=== PATIENT | male | born 1940 | race Caucasian/White ===

== ENCOUNTER 2024-11-07 06:34 | Emergency (ER) | payer MEDICARE ==
[~2024-11-07] VITALS: Ht 167.6 cm; Wt 108.0 kg
--- NOTE | 2024-11-07 06:54 | ERN ---
ED Note History of Present Illness Stated Complaint: C/O URINARY RETENTION X 24 HRS Chief Complaint: Urinary Retention Time Seen by MD: 06:49 Dictation: This is an 84-year-old male who presented to the emergency room complaining of urinary retention for about 24 hours. He also reports suprapubic pain and discomfort. No fever chills or rigors. Patient is a winter texin lives in [place] and drove 2 days to come back to [place]. Since his prostate surgery has not had any problems in urination. His urologist has since retired-Dr. Coleman. He taught him how to do self caths and patient stated that only in the last 1 week he has been self cathing which was going well however this morning when he attempted for the past 24 hours he could not get any urine out. He was he had severe discomfort and hence he came in for evaluation he did indicate that he had some blood in the urine when he was self cathing yesterday morning Temperature 98 pulse 61 respirations 20 blood pressure 164/65 with a pulse oximetry of 97% on room air His chronic medical problems include diabetes mellitus, hypertension and BPH he underwent a laser prostatectomy in 2012. He also gave a history of CAD and coronary artery bypass surgery in the past Allergies: Coded Allergies: No Known Drug Allergies (Verified Allergy, 12/19/12) Past Medical History Past Medical History: CAD, Diabetes-Type II, Hypertension Surgical History: Other Surgical History Other: OPEN HEART (1997) Family History: Negative RN Note Reviewed/Agreed w/PFSH: Yes Review of System Dictation Constitutional: Negative for fever,chills, and weight loss Eyes: Negative for injury, pain,redness, and discharge ENT: Negative for injury,pain or swelling Cardiovascular: Negative for chest pain, palpitations, and edema Respiratory: Negative for shortness of breath, cough, and wheezing, Abdomen/GI: Negative for abdominal pain, nausea, vomiting, diarrhea, and constipation Back: Negative for injury and pain : Negative for injury, bleeding and discharge positive for urinary retention and suprapubic pain MS/Extremity: Negative for injury and deformity Skin: Negative for rash, and discoloration Neuro: Negative for headache, weakness, numbness, tingling, and seizure Psych: Negative for suicide ideation, homicidal ideation, and hallucinations Initial Vital Sign VS Vital Signs Date Time Temp Pulse Resp B/P (MAP) Pulse Ox O2 Delivery O2 Flow Rate FiO2 11/07/24 06:36 98.1 61 20 164/65 97 Room Air 11/07/24 06:54 0 21 Physical Exam Dictation General: awake, alert, NAD Head/Face: Normocephalic, atraumatic Eyes: PERRL, EOMI, vision at baseline ENT: oral cavity clear, TMs clear, no signs of infection Neck: Trachea midline, supple, no nuchal rigidity Cardiovascular: RRR, normal S1/S2, No MRGs, no JVD Respiratory: CTAB, no respiratory distress, No rales or wheezes Abdomen: Soft, non-tender, non-distended, normal bowel sounds, no guarding or rebound. Skin: Warm, dry, normal turgor, no rash MS/Extremity: Pulses equal, no cyanosis, neurovascular intact, FROM Neuro: COAx4, GCS 15, strength 5/5, CN 2-12 intact, normal cerebellar exam, normal gait, Psych: Normal behavior, mood, and affect normal Extremities-trace edema without any palpable cords, Homans sign is negative Results (Laboratory/Radiology) Laboratory/Radiology Laboratory Tests Test 11/07/24 07:06 White Blood Count 7.3 K/uL (4.8-10.8) Red Blood Count 4.24 MIL/uL (4.50-6.20) L Hemoglobin 12.5 g/dL (14.0-18.0) L Hematocrit 37.7 % (42-54) L Mean Corpuscular Volume 88.9 fL (79-99) Mean Corpuscular Hemoglobin 29.5 pg (27.0-33.0) Mean Corpuscular Hemoglobin Concent 33.2 g/dL (32.0-36.0) Red Cell Distribution Width 12.7 % (11.0-15.5) Platelet Count 237 K/uL (130-400) Mean Platelet Volume 8.7 fL (7.5-10.5) Immature Granulocyte % (Auto) 0.5 % (0-1) Neutrophils (%) (Auto) 66.1 % (40.0-77.0) Lymphocytes (%) (Auto) 18.0 % (21.0-51.0) L Monocytes (%) (Auto) 6.9 % (3.0-13.0) Eosinophils (%) (Auto) 7.8 % (0.0-8.0) Basophils (%) (Auto) 0.7 % (0.0-5.0) Neutrophils # (Auto) 4.8 K/uL (1.8-7.7) Lymphocytes # (Auto) 1.3 K/uL (1.0-4.8) Monocytes # (Auto) 0.5 K/uL (0.1-1.0) Eosinophils # (Auto) 0.57 K/uL (0.00-0.70) Basophils # (Auto) 0.05 K/uL (0.00-0.20) Absolute Immature Granulocyte (auto 0.04 K/uL (0-1) Nucleated Red Blood Cells 0.0 % (0.0-0.19) Urine Color YELLOW (YELLOW) Urine Appearance CLOUDY (CLEAR) H Urine pH 6.5 (5.0-8.0) Urine Specific [place] 1.019 (1.001-1.031) Urine Protein 10 mg/dL (NEGATIVE) H Urine Glucose (UA) NEGATIVE mg/dL (NEGATIVE) Urine Ketones NEGATIVE mg/dL (NEGATIVE) Urine Occult Blood MODERATE (NEGATIVE) H Urine Nitrate NEGATIVE (NEGATIVE) Urine Bilirubin NEGATIVE mg/dL (NEGATIVE) Urine Urobilinogen 4.0 mg/dL (0.2-1.0) H Urine Leukocyte Esterase 75 Yves/uL (NEGATIVE) H Urine RBC TNTC /HPF (0-1) H Urine WBC 11-25 /HPF (0-1) H Urine Amorphous Crystals (Auto) Rare /LPF (None Seen) H Urine Bacteria None /HPF (None Seen) Sodium Level 139 mmol/L (136-145) Potassium Level 4.0 mmol/L (3.5-5.1) Chloride Level 106 mmol/L (101-111) Carbon Dioxide Level 26 mmol/L (21-32) Blood Urea Nitrogen 21 mg/dL (7-18) H Creatinine 1.0 mg/dL (0.5-1.3) Glomerular Filtration Rate Calc 74 mL/min (>90) Random Glucose 138 mg/dL (70-105) H Total Calcium 8.5 mg/dL (8.5-10.1) Labs Reviewed?: Yes ED Course ED Course Orders Procedure Category Date Status Time Cbc With Differential LAB 11/07/24 Complete 06:49 Basic Metabolic Panel LAB 11/07/24 Complete 06:49 Bladder Scan CPOE 11/07/24 Transmitted 06:49 Nurse Driven Pickering NASREEN 11/07/24 In Process Removal Pro 06:57 Urinalysis Profile LAB 11/07/24 Complete Catherized 06:58 Culture Urine POLLO 11/07/24 Logged 07:31 Ceftriaxone 1g Vial PHA 11/07/24 Complete (Rocephine 1g Inj) 08:00 Current Medications Medications (Trade) Dose Ordered Sig/Melissa Route PRN Reason Start Time Stop Time Status Last Admin Dose Admin Ceftriaxone Sodium (ROCEphine 1G INJ) 1 gm ONCE ONCE IVPB 11/07/24 08:00 11/07/24 08:01 DC Vital Signs Date Time Temp Pulse Resp B/P (MAP) Pulse Ox O2 Delivery O2 Flow Rate FiO2 11/07/24 07:25 98.1 56 13 153/72 96 Room Air* 0 21 11/07/24 06:54 98.1 60 17 156/74 94 Room Air* 0 21 11/07/24 06:36 98.1 61 20 164/65 97 Room Air We will perform diagnostic labs, and administer medications according to the patient's complaint. Once the results are available, will review and personally interpreted the labs to rule out any acute life-threatening emergency the trach require immediate intervention and treatment. I will then re-evaluate the patient after treatment and diagnostic exams have return to determine whether the patient requires any further testing, can safely be discharged home or need further admission to hospital for additional treatment and evaluation. Medical Decision Making MDM I took over care at 7:00 a.m.. CC: Difficulty catheterization thing, has not produced urine for about 24 hours. Limitations by social determinants of health: None Differential diagnosis: Urinary retention, infection, other Comorbidities: Diabetes, CAD, hypertension, advanced age, BPH history of laser prostatectomy in 2012. Historian: Patient Vital signs: Stable. Mild hypertension. Baseline for patient. Labs: No leukocytosis or anemia. Chemistry shows stable renal function. Stable glucose. No imaging indicated Pickering catheter placed, 1200 cc of yellow urine without blood clots removed. Patient reports improvement of symptoms. Patient has primary care follow up scheduled next week. I will recommend he follows up with the urologist, he may need a referral from his primary doctor but I will give him one here now. We will start him on tamsulosin since she is not taking it. Urinalysis did show some minimal bacteria, so we will treat with some antibiotics. He received IM Rocephin here in the ER. Otherwise, he looks well. Vitals are stable and labs are stable. Plan will be to discharge for outpatient workup. He will likely need the Pickering in place for a couple of weeks. DX & DISP Disposition: Discharge Departure Impression: Primary Impression: Urinary retention Additional Impression: UTI (urinary tract infection) Condition: Stable Scripts Cefpodoxime Proxetil (Cefpodoxime Proxetil) 200 Mg Tablet 1 TAB PO BID for 10 Days, #20 TAB 0 Refills Prov: ALLA GOFF DO 11/07/24 Tamsulosin HCl (Flomax) 0.4 Mg Cap.er.24h 0.4 MG PO DAILY for 30 Days, #30 CAPSULE. Prov: ALLA GOFF DO 11/07/24 Additional Instructions: You had urinary retention. A pickering catheter was placed and 1200mL of urine was drained. Your vital signs have been stable. Your labwork (CBC, BMP) is unremarkable. There are no signs of significant infection. The urinalysis has some mild bacteria. You will likely need to keep in the pickering catheter for 1-2 weeks. I recommend that you follow up with a urologist. As we discussed, I have given you a referral to Dr Padgett. Call for an appointment. You may need a referral from your primary doctor. I've prescribed tamsulosin. Take nightly. I've prescribed cefpodoxime, which is an antibiotic. Take as prescribed. Please return to the emergency department if you have any concerns. Referrals: ELISABETH PADGETT MD [facility],BEBETO Olvera MD Nov 07, 2024 06:54 ALLA GOFF DO Nov 07, 2024 08:18
--- NOTE | 2024-11-07 06:55 | NUR ---
BLADDER SCAN 971 ML
--- NOTE | 2024-11-07 07:13 | NUR ---
REPORT GIVEN TO BOLIVAR RN AND SAMEER RN AT THIS TIME
[2024-11-07 07:16] LABS: IMMATURE GRANULOCYTE ABSOLUTE 0.04 K/uL (0-1); NUCLEATED RED BLOOD CELLS 0.0 % (0.0-0.19); PLATELET COUNT (AUTO) 237 K/uL (130-400); RED BLOOD CELL COUNT(AUTO) 4.24 MIL/uL (4.50-6.20); RED CELL DISTRIBUTION WIDTH 12.7 % (11.0-15.5); WHITE BLOOD COUNT (AUTO) 7.3 K/uL (4.8-10.8)
[2024-11-07 07:26] LABS: CREATININE 1.0 mg/dL (0.5-1.3); GLOMERULAR FILTR. RATE CALC 74.0 mL/min (>90); GLUCOSE,RANDOM 138.0 mg/dL (70-105); SODIUM SERUM 139.0 mmol/L (136-145); UREA NITROGEN, BLOOD 21.0 mg/dL (7-18)
[2024-11-07 07:27] LABS: APPEARANCE,URINE CLOUDY (CLEAR); GLUCOSE, URINE (UA) NEGATIVE (NEGATIVE); LEUKOCYTE ESTERASE ,URINE 75 Leu/uL (NEGATIVE); NITRATE,URINE NEGATIVE (NEGATIVE); OCCULT BLOOD,URINE MODERATE (NEGATIVE)
[2024-11-07 07:31] LABS: ADD UA MICROSCOPIC YES
--- NOTE | 2024-11-07 07:35 | NUR ---
URINE OUTPUT 1200 ML
[2024-11-07] MEDS ORDERED: CEFP200T14 PO (08:14)
[2024-11-07] MEDS ORDERED: TAMS-55 PO (08:14)
--- NOTE | 2024-11-07 08:33 | NUR ---
1400 ML URINE OUTPUT
[2024-11-07 08:51] VITALS: TEMP 98.2
--- NOTE | 2024-11-07 08:52 | NUR ---
LEG BAG APPLIED AND LEG BAG INSTRUCTIONS PROVIDED TO PT, VERBALIZED UNDERSTANDING.
[2024-11-07 09:01] VITALS: BP 151/59; PULSE 64; RESP 13; O2SAT 98
== END 2024-11-07 09:02 | disposition home or self-care (01) ==
LOC: EDH 06:34
DX: N39.0 Urinary tract infection, site not specified (principal); E11.9 Type 2 diabetes mellitus without complications; I10 Essential (primary) hypertension; I25.10 Atherosclerotic heart disease of native coronary artery without angina pectoris
CPT/HCPCS: 99285; 96365; 80048; 85025; 87086; 81001; 36415; 51702; J0696

== ENCOUNTER 2024-11-14 09:10 | Emergency (ER) | payer MEDICARE ==
[~2024-11-14] VITALS: Ht 167.6 cm; Wt 108.9 kg
[~2024-11-14 09:10] MED LIST: CEFP200T14 PO; TAMS-55 PO
[2024-11-14 09:40] LABS: IMMATURE GRANULOCYTE ABSOLUTE 0.02 K/uL (0-1); NUCLEATED RED BLOOD CELLS 0.0 % (0.0-0.19); PLATELET COUNT (AUTO) 216 K/uL (130-400); RED BLOOD CELL COUNT(AUTO) 4.11 MIL/uL (4.50-6.20); RED CELL DISTRIBUTION WIDTH 12.8 % (11.0-15.5); WHITE BLOOD COUNT (AUTO) 5.8 K/uL (4.8-10.8)
[2024-11-14 09:47] LABS: CREATININE 1.0 mg/dL (0.5-1.3); GLOMERULAR FILTR. RATE CALC 74.0 mL/min (>90); GLUCOSE,RANDOM 222.0 mg/dL (70-105); SODIUM SERUM 140.0 mmol/L (136-145); UREA NITROGEN, BLOOD 20.0 mg/dL (7-18)
[2024-11-14 09:51] LABS: ASPARTATE AMINOTRANSFERASE 22.0 U/L (10-37); TOTAL PROTEIN, SERUM 6.2 g/dL (6.0-8.3)
[2024-11-14 14:10] LABS: GLUCOSE, URINE (UA) NEGATIVE (NEGATIVE); LEUKOCYTE ESTERASE ,URINE MODERATE Leu/uL (NEGATIVE); NITRATE,URINE POSITIVE (NEGATIVE); OCCULT BLOOD,URINE LARGE (NEGATIVE)
[2024-11-14 14:11] LABS: ADD UA MICROSCOPIC YES; APPEARANCE,URINE TURBID (CLEAR)
[2024-11-14 14:24] LABS: SQUAMOUS EPITHELIAL CELL,UR None Seen /HPF (0-2)
--- NOTE | 2024-11-14 15:12 | ERN ---
ED Note History of Present Illness Stated Complaint: BLOOD IN URINE Chief Complaint: Blood in Urine: Time Seen by MD: 09:18 Dictation: 84-year-old male presenting to the emergency department with blood in Cortes catheter patient reports having Cortes catheter in place a few days ago doing well until today having discomfort and trouble urinating. Allergies: Coded Allergies: No Known Drug Allergies (Verified Allergy, 12/19/12) Home Meds Active Scripts Cefpodoxime Proxetil (Cefpodoxime Proxetil) 200 Mg Tablet, 1 TAB PO BID for 10 Days, #20 TAB 0 Refills Prov:ALLA GOFF DO 11/07/24 Tamsulosin HCl (Flomax) 0.4 Mg Cap.er.24h, 0.4 MG PO DAILY for 30 Days, #30 CAPSULE.DR Prov:ALLA GOFF DO 11/07/24 Past Medical History Past Medical History: CAD, Diabetes-Type II, Hypertension Surgical History: Other Surgical History Other: OPEN HEART (1997) Family History: Negative Review of System Dictation Constitutional: Negative for fever,chills, and weight loss Eyes: Negative for injury, pain,redness, and discharge ENT: Negative for injury,pain or swelling Cardiovascular: Negative for chest pain, palpitations, and edema Respiratory: Negative for shortness of breath, cough, and wheezing, Abdomen/GI: Negative for abdominal pain, nausea, vomiting, diarrhea, and constipation Back: Negative for injury and pain : Per HPI MS/Extremity: Negative for injury and deformity Skin: Negative for rash, and discoloration Neuro: Negative for headache, weakness, numbness, tingling, and seizure Psych: Negative for suicide ideation, homicidal ideation, and hallucinations Initial Vital Sign VS Vital Signs Date Time Temp Pulse Resp B/P (MAP) Pulse Ox O2 Delivery O2 Flow Rate FiO2 11/14/24 09:11 97.3 73 20 156/56 97 Room Air 11/14/24 11:28 0 21 Physical Exam Dictation General: awake, alert, NAD Head/Face: Normocephalic, atraumatic Eyes: PERRL, EOMI, vision at baseline ENT: oral cavity clear, TMs clear, no signs of infection Neck: Trachea midline, supple, no nuchal rigidity Cardiovascular: RRR, normal S1/S2, No MRGs, no JVD Respiratory: CTAB, no respiratory distress, No rales or wheezes Abdomen: Soft, non-tender, non-distended, normal bowel sounds, no guarding or rebound. Cortes catheter in place with bloody urine Skin: Warm, dry, normal turgor, no rash MS/Extremity: Pulses equal, no cyanosis, neurovascular intact, FROM Neuro: COAx4, GCS 15, strength 5/5, CN 2-12 intact, normal cerebellar exam, normal gait, Results (Laboratory/Radiology) Laboratory/Radiology Laboratory Tests Test 11/14/24 09:31 11/14/24 13:45 White Blood Count 5.8 K/uL (4.8-10.8) Red Blood Count 4.11 MIL/uL (4.50-6.20) L Hemoglobin 12.2 g/dL (14.0-18.0) L Hematocrit 37.6 % (42-54) L Mean Corpuscular Volume 91.5 fL (79-99) Mean Corpuscular Hemoglobin 29.7 pg (27.0-33.0) Mean Corpuscular Hemoglobin Concent 32.4 g/dL (32.0-36.0) Red Cell Distribution Width 12.8 % (11.0-15.5) Platelet Count 216 K/uL (130-400) Mean Platelet Volume 8.6 fL (7.5-10.5) Immature Granulocyte % (Auto) 0.3 % (0-1) Neutrophils (%) (Auto) 67.0 % (40.0-77.0) Lymphocytes (%) (Auto) 19.3 % (21.0-51.0) L Monocytes (%) (Auto) 6.2 % (3.0-13.0) Eosinophils (%) (Auto) 6.7 % (0.0-8.0) Basophils (%) (Auto) 0.5 % (0.0-5.0) Neutrophils # (Auto) 3.9 K/uL (1.8-7.7) Lymphocytes # (Auto) 1.1 K/uL (1.0-4.8) Monocytes # (Auto) 0.4 K/uL (0.1-1.0) Eosinophils # (Auto) 0.39 K/uL (0.00-0.70) Basophils # (Auto) 0.03 K/uL (0.00-0.20) Absolute Immature Granulocyte (auto 0.02 K/uL (0-1) Nucleated Red Blood Cells 0.0 % (0.0-0.19) Sodium Level 140 mmol/L (136-145) Potassium Level 4.5 mmol/L (3.5-5.1) Chloride Level 104 mmol/L (101-111) Carbon Dioxide Level 27 mmol/L (21-32) Blood Urea Nitrogen 20 mg/dL (7-18) H Creatinine 1.0 mg/dL (0.5-1.3) Glomerular Filtration Rate Calc 74 mL/min (>90) Random Glucose 222 mg/dL (70-105) H Total Calcium 8.6 mg/dL (8.5-10.1) Total Bilirubin 0.6 mg/dL (0.2-1.0) Direct Bilirubin 0.2 mg/dL (0.0-0.3) Aspartate Amino Transf (AST/SGOT) 22 U/L (10-37) Alanine Aminotransferase (ALT/SGPT) 42 U/L (12-78) Alkaline Phosphatase 131 U/L (50-136) Total Protein 6.2 g/dL (6.0-8.3) Albumin 2.9 g/dL (3.5-5.0) L Urine Color RED (YELLOW) H Urine Appearance TURBID (CLEAR) H Urine pH 6.5 (5.0-8.0) Urine Specific [place] 1.015 (1.001-1.031) Urine Protein >=300 mg/dL (NEGATIVE) H Urine Glucose (UA) NEGATIVE mg/dL (NEGATIVE) Urine Ketones 5 mg/dL (NEGATIVE) H Urine Occult Blood LARGE (NEGATIVE) H Urine Nitrate POSITIVE (NEGATIVE) H Urine Bilirubin LARGE mg/dL (NEGATIVE) H Urine Urobilinogen 2.0 mg/dL (0.2-1.0) H Urine Leukocyte Esterase MODERATE Yves/uL Urine RBC TNTC /HPF (0-1) H Urine WBC 26-50 /HPF (0-1) H Urine Squamous Epithelial Cells None Seen /HPF (0-2) Urine Bacteria Rare /HPF (None Seen) Labs Reviewed?: Yes ED Course ED Course Orders Procedure Category Date Status Time Basic Metabolic Panel LAB 11/14/24 Complete 09: Cbc With Differential LAB 11/14/24 Complete 09:20 Hepatic Function Panel LAB 11/14/24 Complete 09:20 Urinalysis Profile LAB 11/14/24 Complete 09:20 *Nursing CPOE 11/14/24 Transmitted Communication: 12:14 Culture Urine POLLO 11/14/24 In Process 14:13 Vital Signs Date Time Temp Pulse Resp B/P (MAP) Pulse Ox O2 Delivery O2 Flow Rate FiO2 11/14/24 11:28 97.3 71 20 141/60 97 Room Air* 0 21 11/14/24 09:11 97.3 73 20 156/56 97 Room Air Medical Decision Making MDM MDM: Differential diagnosis: Rationale: Tests considered and ordered secondary to shared decision making include: Previous outside records reviewed: Old ER visits. Risk of complication and/or morbidity or mortality of patient management: None Medications-Per medication reconciliation Need for hospitalization: Patient does not meet criteria for hospitalization. Need for emergency major/minor surgery: No There are no social concerns with this patient. Prescription drug management Prescriptions will include symptomatic care Patient's prior external medical records from other ER visits were reviewed by me as indicated. Prior testing and results from previous visits were reviewed. Prior tests were taken into account with medical decision making and resource utilization, independent historian/historians were used to obtain complete medical history. I independently interpreted the test that were performed, results were reviewed by me and considered findings on radiology if ordered. Medical management and examination interpretation discussions were had by me with other qualified healthcare professionals as indicated for the patient's care. 84-year-old male with gross hematuria from Cortes, Cortes was replaced with three way irrigated and urine has not now cleared no obstruction stable for discharge DX & DISP Disposition: Discharge Departure Impression: Primary Impression: Hematuria Additional Impression: Cortes catheter in place Condition: Stable Referrals: CAROLYN BROWN MD (PCP) JAMIE GREGG MD Nov 14, 2024 15:12
[2024-11-14 16:30] VITALS: BP 138/62; PULSE 70; RESP 20; TEMP 97.3; O2SAT 97
[2024-11-16] MEDS ORDERED: ATOR-2 PO (20:22)
[2024-11-16] MEDS ORDERED: ATEN50TA PO (20:24)
[2024-11-16] MEDS ORDERED: TAMS-55 PO (20:24)
[2024-11-16] MEDS ORDERED: METF-444 PO (20:24)
[2024-11-16] MEDS ORDERED: CLOP75TA32 PO (20:27)
[2024-11-16] MEDS ORDERED: LISI10TA24 PO (20:27)
[2024-11-16] MEDS ORDERED: EZET10TA80 PO (20:27)
[2024-11-16] MEDS ORDERED: [UNRECOGNIZED DRUG - CODE] PO (20:34)
[2024-11-16] MEDS ORDERED: FOLI0.8C PO (20:34)
[2024-11-16] MEDS ORDERED: ASPI-1146 PO (20:37)
[2024-11-16] MEDS ORDERED: CETI10TA87 PO (20:37)
[2024-11-16] MEDS ORDERED: NIAC500C9 PO (20:37)
[2024-11-16] MEDS ORDERED: ASPI-1197 PO (20:37)
[2024-11-16] MEDS ORDERED: areds2 (20:39)
[2024-11-16] MEDS ORDERED: AREDS-2 PO (20:39)
[2024-11-16] MEDS ORDERED: TUMERIC CURCUMIN PO (20:40)
[2024-11-16] MEDS ORDERED: ALBUTEROL IH (20:42)
== END 2024-11-14 16:33 | disposition home or self-care (01) ==
LOC: EDH 09:10
DX: R31.9 Hematuria, unspecified (principal); E11.9 Type 2 diabetes mellitus without complications; I10 Essential (primary) hypertension; I25.10 Atherosclerotic heart disease of native coronary artery without angina pectoris; Z96.0 Presence of urogenital implants
CPT/HCPCS: 36415; 51702; 80048; 80076; 81001; 85025; 87086; 99283; 99284

== ENCOUNTER 2024-12-26 08:48 | Emergency (ER) | payer MEDICARE ==
[~2024-12-26] VITALS: Ht 167.6 cm; Wt 104.3 kg
[~2024-12-26 08:48] MED LIST changes: +ALBUTEROL IH; +AREDS-2 PO; +ASPI-1146 PO; +ATEN50TA PO; +ATOR-2 PO; +CETI10TA87 PO; +CLOP75TA32 PO; +EZET10TA80 PO; +FLUT15.845 NS; +FOLI0.8C PO; +LISI10TA24 PO; +METF-444 PO; +NIAC500C9 PO; +TUMERIC CURCUMIN PO; +[UNRECOGNIZED DRUG - CODE] PO
[2024-12-26 08:55] VITALS: BP 151/61; PULSE 65; RESP 16; TEMP 97.5
--- NOTE | 2024-12-26 11:32 | NUR ---
PT JUST NOW PLACED IN ED 1
[2024-12-26 12:14] LABS: APPEARANCE,URINE TURBID (CLEAR); GLUCOSE, URINE (UA) NEGATIVE (NEGATIVE); LEUKOCYTE ESTERASE ,URINE 500 Leu/uL (NEGATIVE); NITRATE,URINE NEGATIVE (NEGATIVE); OCCULT BLOOD,URINE LARGE (NEGATIVE)
[2024-12-26 12:16] LABS: ADD UA MICROSCOPIC YES
[2024-12-26 12:45] LABS: SQUAMOUS EPITHELIAL CELL,UR None Seen /HPF (0-2)
[2024-12-26] MEDS ORDERED: CIPR-278 PO (13:34)
--- NOTE | 2024-12-26 13:34 | ERN ---
ED Note History of Present Illness Stated Complaint: URINARY RETENTION Chief Complaint: Urinary Retention Time Seen by MD: 08:50 Dictation: 84-year-old male presenting to the emergency department with acute urinary retention, patient had Cortes which was DC by his urologist yesterday in clinic however urinary retention returned and arrived to the emergency department today. Patient denies any fever chest pain or shortness of breath or abdominal pain. Allergies: Coded Allergies: No Known Drug Allergies (Verified Allergy, 12/19/12) Home Meds Reported Medications Cefpodoxime Proxetil (Cefpodoxime Proxetil) 200 Mg Tablet, 1 TAB PO BID 11/30/24 Fluticasone Propionate (Fluticasone Propionate) 50 Mcg/Actuation Tarkio.susp, 2 SPRAY NS BID, #16 GM 0 Refills 11/30/24 Aspirin (Ecotrin) 325 Mg Tablet.dr, 325 MG PO DAILY, TAB 11/30/24 Tamsulosin HCl (Flomax) 0.4 Mg Cap.er.24h, 1 CAP PO BID 11/30/24 Clopidogrel Bisulfate (Clopidogrel) 75 Mg Tablet, 1 TAB PO DAILY 11/30/24 [Salabutamol] No Conflict Check, 1 PUFF IH AD PRN for SHORTNESS OF BREATH/WHEEZING 11/16/24 [Tumeric Curcumin] No Conflict Check, 500 MG PO DAILY 11/16/24 [Areds-2] No Conflict Check, 1 TAB PO BID PRN for EYE VITAMIN 11/16/24 Cetirizine HCl (Cetirizine HCl) 10 Mg Tab.chew, 1 TAB PO HS for allergy symptoms for 30 Days, #30 TAB 0 Refills 11/16/24 Niacin (Niacin) 500 Mg Capsule.er, 500 MG PO AM, CAP 11/16/24 Folic Acid (Folic Acid) 0.8 Mg Capsule, 0.8 MG PO DAILY, CAP 11/16/24 Pyridoxine HCl (Vitamin B-6) 100 Mg Tablet, 100 MG PO DAILY, TAB 11/16/24 Ezetimibe (Ezetimibe) 10 Mg Tablet, 1 TAB PO DAILY for 30 Days, #30 TAB 0 Refills 11/16/24 Lisinopril (Lisinopril) 10 Mg Tablet, 1 TAB PO DAILY for 30 Days, #30 TAB 0 Refills 11/16/24 Metformin HCl (Metformin HCl) 500 Mg Tablet, 500 MG PO DAILY, TAB 11/16/24 Atenolol (Atenolol) 50 Mg Tablet, 1 TAB PO PCDINNER for 30 Days, #30 TAB 0 Refills 11/16/24 Atorvastatin Calcium (Atorvastatin Calcium) 80 Mg Tablet, 80 MG PO HS, TAB 11/16/24 Past Medical History Past Medical History: High Cholesterol, Hypertension, Other Additional Past Medical Hx: HARD OF HEARING Surgical History: Other Surgical History Other: BLADDER SX WITH DR. AMADO. BILATERAL LOWER EXTREMITY VEINS SX Family History: Negative Review of System Dictation Constitutional: Negative for fever,chills, and weight loss Eyes: Negative for injury, pain,redness, and discharge ENT: Negative for injury,pain or swelling Cardiovascular: Negative for chest pain, palpitations, and edema Respiratory: Negative for shortness of breath, cough, and wheezing, Abdomen/GI: Negative for abdominal pain, nausea, vomiting, diarrhea, and constipation Back: Negative for injury and pain : Per HPI MS/Extremity: Negative for injury and deformity Skin: Negative for rash, and discoloration Neuro: Negative for headache, weakness, numbness, tingling, and seizure Psych: Negative for suicide ideation, homicidal ideation, and hallucinations Initial Vital Sign VS Vital Signs Date Time Temp Pulse Resp B/P (MAP) Pulse Ox O2 Delivery O2 Flow Rate FiO2 12/26/24 08:55 97.5 65 16 151/61 97 Room Air 0 Physical Exam Dictation General: awake, alert, uncomfortable Head/Face: Normocephalic, atraumatic Eyes: PERRL, EOMI, vision at baseline ENT: oral cavity clear, TMs clear, no signs of infection Neck: Trachea midline, supple, no nuchal rigidity Cardiovascular: RRR, normal S1/S2, No MRGs, no JVD Respiratory: CTAB, no respiratory distress, No rales or wheezes Abdomen: Soft, non-tender, non-distended, normal bowel sounds, no guarding or rebound. Skin: Warm, dry, normal turgor, no rash MS/Extremity: Pulses equal, no cyanosis, neurovascular intact, FROM Neuro: COAx4, GCS 15, strength 5/5, CN 2-12 intact, normal cerebellar exam, normal gait, Psych: Normal behavior, mood, and affect normal Results (Laboratory/Radiology) Laboratory/Radiology Laboratory Tests Test 12/26/24 12:01 Urine Color YELLOW (YELLOW) Urine Appearance TURBID (CLEAR) Urine pH 6.5 (5.0-8.0) Urine Specific [place] 1.014 (1.001-1.031) Urine Protein 50 mg/dL (NEGATIVE) H Urine Glucose (UA) NEGATIVE mg/dL (NEGATIVE) Urine Ketones NEGATIVE mg/dL (NEGATIVE) Urine Occult Blood LARGE (NEGATIVE) H Urine Nitrate NEGATIVE (NEGATIVE) Urine Bilirubin NEGATIVE mg/dL (NEGATIVE) Urine Urobilinogen 0.2 mg/dL (0.2-1.0) Urine Leukocyte Esterase 500 Yves/uL (NEGATIVE) H Urine RBC 11-25 /HPF (0-1) H Urine WBC 26-50 /HPF (0-1) H Urine Squamous Epithelial Cells None Seen /HPF (0-2) Urine Bacteria Moderate /HPF (None Seen) H Labs Reviewed?: Yes ED Course ED Course Orders Procedure Category Date Status Time *Nursing CPOE 12/26/24 Transmitted Communication: 08:50 Urinalysis Profile LAB 12/26/24 Complete 08:50 Culture Urine POLLO 12/26/24 In Process 12:17 Ceftriaxone 2gm Vial PHA 12/26/24 Complete (Rocephin 2gm Inj) 13:21 Current Medications Medications (Trade) Dose Ordered Sig/Melissa Route PRN Reason Start Time Stop Time Status Last Admin Dose Admin Ceftriaxone Sodium (Rocephin 2gm Inj) 2 gm ONCE STAT IVPB 12/26/24 13:21 12/26/24 13:23 DC Vital Signs Date Time Temp Pulse Resp B/P (MAP) Pulse Ox O2 Delivery O2 Flow Rate FiO2 12/26/24 08:55 97.5 65 16 151/61 97 Room Air 0 Medical Decision Making MDM MDM: Differential diagnosis: Rationale: Tests considered and ordered secondary to shared decision making include: Previous outside records reviewed: Old ER visits. Risk of complication and/or morbidity or mortality of patient management: None Medications-Per medication reconciliation Need for hospitalization: Patient does not meet criteria for hospitalization. Need for emergency major/minor surgery: No There are no social concerns with this patient. Prescription drug management Prescriptions will include symptomatic care Patient's prior external medical records from other ER visits were reviewed by me as indicated. Prior testing and results from previous visits were reviewed. Prior tests were taken into account with medical decision making and resource utilization, independent historian/historians were used to obtain complete medical history. I independently interpreted the test that were performed, results were reviewed by me and considered findings on radiology if ordered. Medical management and examination interpretation discussions were had by me with other qualified healthcare professionals as indicated for the patient's care. 84-year-old male with acute urinary retention, I just had Cortes removed in clinic, Cortes was replaced here in the emergency department with relief of symptoms and also has signs of UTI on UA, was given antibiotics and stable for discharge with Urology follow-up. DX & DISP Disposition: Discharge Departure Impression: Primary Impression: UTI (urinary tract infection) Additional Impression: Urinary retention Condition: Stable Scripts Ciprofloxacin HCl (Cipro) 500 Mg Tablet 1 TAB PO BID for 5 Days, #10 TAB 0 Refills Prov: JAMIE GREGG MD 12/26/24 Referrals: GARTH BUNCH (PCP) JAMIE GREGG MD Dec 26, 2024 13:34
== END 2024-12-26 14:57 | disposition home or self-care (01) ==
LOC: EDH 08:48
DX: N39.0 Urinary tract infection, site not specified (principal); R33.9 Retention of urine, unspecified; E78.00 Pure hypercholesterolemia, unspecified; I10 Essential (primary) hypertension; Z79.02 Long term (current) use of antithrombotics/antiplatelets; Z79.82 Long term (current) use of aspirin; Z79.84 Long term (current) use of oral hypoglycemic drugs; Z79.899 Other long term (current) drug therapy
CPT/HCPCS: 99284; 87086 ×2; 87186; 81001; 51702; 96372; J0696

== ENCOUNTER 2025-01-25 12:24 | Emergency (ER) | payer MEDICARE ==
[~2025-01-25] VITALS: Ht 167.6 cm; Wt 106.6 kg
[2025-01-25 12:25] VITALS: BP 143/70; PULSE 60; RESP 20; TEMP 97.6
--- NOTE | 2025-01-25 12:50 | ERN ---
ED Note History of Present Illness Stated Complaint: URINARY RETENTION Chief Complaint: Urinary Retention Time Seen by MD: 12:38 Time Seen by Midlevel: 12:40 Dictation: Mr. Jacobo 84-year-old gentleman with history of hypertension, hyperlipidemia, type 2 diabetes, obesity, and urinary retention was referred to the emergency department this afternoon by urologist office for further management of urinary retention. He states that he has been having issues with urinary retention on and off since October. He has had Cortes catheters in place on several occasions. They removed his Cortes catheter yesterday at office and initially he was able to void without difficulty but today he is voiding very little. He returned to the urologist office and they told him to come to the ED to have a catheter placed. He states that he is pending a procedures that they had planned to do on Wednesday but he was unable to get the preop evaluations done in time. It will most likely be scheduled after . He denies fever, chills, abdominal pain, nausea, vomiting, diarrhea, hematuria, flank pain, headache, or dizziness. Allergies: Coded Allergies: No Known Drug Allergies (Verified Allergy, 12/19/12) Home Meds Active Scripts Ciprofloxacin HCl (Cipro) 500 Mg Tablet, 1 TAB PO BID for 5 Days, #10 TAB 0 Refills Prov:JAMIE GREGG MD 12/26/24 Reported Medications Cefpodoxime Proxetil (Cefpodoxime Proxetil) 200 Mg Tablet, 1 TAB PO BID 11/30/24 Fluticasone Propionate (Fluticasone Propionate) 50 Mcg/Actuation [place].susp, 2 SPRAY NS BID, #16 GM 0 Refills 11/30/24 Aspirin (Ecotrin) 325 Mg Tablet.dr, 325 MG PO DAILY, TAB 11/30/24 Tamsulosin HCl (Flomax) 0.4 Mg Cap.er.24h, 1 CAP PO BID 11/30/24 Clopidogrel Bisulfate (Clopidogrel) 75 Mg Tablet, 1 TAB PO DAILY 11/30/24 [Salabutamol] No Conflict Check, 1 PUFF IH AD PRN for SHORTNESS OF BREATH/W HEEZING 11/16/24 [Tumeric Curcumin] No Conflict Check, 500 MG PO DAILY 11/16/24 [Areds-2] No Conflict Check, 1 TAB PO BID PRN for EYE VITAMIN 11/16/24 Cetirizine HCl (Cetirizine HCl) 10 Mg Tab.chew, 1 TAB PO HS for allergy symptoms for 30 Days, #30 TAB 0 Refills 11/16/24 Niacin (Niacin) 500 Mg Capsule.er, 500 MG PO AM, CAP 11/16/24 Folic Acid (Folic Acid) 0.8 Mg Capsule, 0.8 MG PO DAILY, CAP 11/16/24 Pyridoxine HCl (Vitamin B-6) 100 Mg Tablet, 100 MG PO DAILY, TAB 11/16/24 Ezetimibe (Ezetimibe) 10 Mg Tablet, 1 TAB PO DAILY for 30 Days, #30 TAB 0 Refills 11/16/24 Lisinopril (Lisinopril) 10 Mg Tablet, 1 TAB PO DAILY for 30 Days, #30 TAB 0 Refills 11/16/24 Metformin HCl (Metformin HCl) 500 Mg Tablet, 500 MG PO DAILY, TAB 11/16/24 Atenolol (Atenolol) 50 Mg Tablet, 1 TAB PO PCDINNER for 30 Days, #30 TAB 0 Refills 11/16/24 Atorvastatin Calcium (Atorvastatin Calcium) 80 Mg Tablet, 80 MG PO HS, TAB 11/16/24 Past Medical History Past Medical History: High Cholesterol, Hypertension, Other Additional Past Medical Hx: HARD OF HEARING, BPH Surgical History: Other Surgical History Other: BLADDER SX WITH DR. ZULETA. BILATERAL LOWER EXTREMITY VEINS SX PSYCH History: no pertinent psych hx Family History: Negative Social History: Negative, Lives with family RN Note Reviewed/Agreed w/PFSH: Yes Review of System Dictation REVIEW OF SYSTEMS: CONSTITUTIONAL: Patient denies fevers, chills, sweats and weight changes. EYES: Patient denies any visual symptoms. EARS, NOSE, AND THROAT: No difficulties with hearing. No symptoms of rhinitis or sore throat. CARDIOVASCULAR: Patient denies chest pains, palpitations, orthopnea and paroxysmal nocturnal dyspnea. RESPIRATORY: No dyspnea on exertion, no wheezing or cough. GI: No nausea, vomiting, diarrhea, constipation, abdominal pain, hematochezia or melena. : No flank pain. No hematuria. No abnormal urethral discharge. States he has history of urinary retention and has required Cortes catheterization placement several times since October. He is pending a procedure in the near future. He had a Cortes which was discontinued at the office yesterday. Initially he was voiding well but today he is voiding very little. He went back to the urologist office any was advised to come to the ED to have a catheter placed. MUSCULOSKELETAL: No myalgias or arthralgias. NEUROLOGIC: No chronic headaches, no seizures. Patient denies numbness, tingling or weakness. PSYCHIATRIC: Patient denies problems with mood disturbance. No problems with anxiety. ENDOCRINE: No excessive urination or excessive thirst. DERMATOLOGIC: Patient denies any rashes or skin changes. Initial Vital Sign VS Vital Signs Date Time Temp Pulse Resp B/P (MAP) Pulse Ox O2 Delivery O2 Flow Rate FiO2 01/25/25 12:25 97.5 60 20 143/70 98 Room Air 0 Physical Exam Dictation Vital signs: Reviewed. Afebrile Constitutional: No acute distress. Non-toxic appearing. Pleasant Head/Face: Normocephalic, atraumatic. Eyes: Periorbital areas with no swelling, redness, or edema. Lids and lashes are normal. Conjunctival injection is absent. Sclera anicteric. Pupils equal, round, reactive to light. ENT: Pinnas intact and no signs of trauma or erythema. H&H per baseline Ear canals clear and no discharge. TMs no erythema. No nasal discharge or bleeding noted. Oropharynx with no exudate, redness, swelling, masses, exudates, or evidence of obstruction. Uvula midline. Mucous membranes moist. Neck: Trachea midline, no masses palpated, and no cervical lymphadenopathy. No swelling. Supple, full range of motion. Chest/Axilla: No tenderness, no crepitus, no paradoxical movement, no retractions. Cardiovascular: Regular rate, regular rhythm, no murmur, no gallops. Symmetric pulses. No peripheral edema. Respiratory: Respirations even and unlabored. Lung sounds clear; no wheezes, rales or rhonchi. Gastrointestinal: Obese.. No distention is appreciated. Bowel sounds are normal. No mass or organomegaly . There is no tenderness. No rebound. No rigidity. No voluntary or involuntary guarding. No Natarajan's sign. : Negative CVA tenderness bilaterally. Unable to void. A Cortes catheter has been ordered. Neurological: Normal speech, gross motor function intact, gross sensory function intact. No focal weakness/Paresthesia. Musculoskeletal/Extremities: All extremities have full range of motion, no pain or tenderness on palpation. Symmetric pulses. Integumentary: Intact. Skin is normal color, warm and dry. Cap refill less than 3 seconds. ED Course ED Course Orders Procedure Category Date Status Time Nurse Driven Cortes NASREEN 01/25/25 In Process Removal Pro 12:45 Vital Signs Date Time Temp Pulse Resp B/P (MAP) Pulse Ox O2 Delivery O2 Flow Rate FiO2 01/25/25 12:25 97.5 60 20 143/70 98 Room Air 0 Eventful ED course. Vital signs are stable; afebrile and normotensive with room air SpO2 98%. Patient has no pain. A Cortes catheter was easily placed. Urine is clear yellow; draining well. Patient will follow up with Dr. Zuleta's office and continue with preop and scheduling procedure. Medical Decision Making MDM MDM: Differential diagnosis: Urinary retention, hematuria with clot Rationale: Tests considered and ordered secondary to shared decision making include: Examination/Cortes catheter placement Previous outside records reviewed: Old ER visits. Risk of complication and/or morbidity or mortality of patient management: None Medications-Per medication reconciliation Need for hospitalization: Patient does not meet criteria for hospitalization. Need for emergency major/minor surgery: No There are no social concerns with this patient. Prescription drug management: Continue home meds Prescriptions will include symptomatic care Patient's prior external medical records from other ER visits were reviewed by me as indicated. Prior testing and results from previous visits were reviewed. Prior tests were taken into account with medical decision making and resource utilization, independent historian/historians were used to obtain complete medical history. I independently interpreted the test that were performed, results were reviewed by me and considered findings on radiology if ordered. Medical management and examination interpretation discussions were had by me with other qualified healthcare professionals as indicated for the patient's care. DX & DISP Disposition: Discharge Departure Impression: Primary Impression: Urinary retention Condition: Stable Additional Instructions: Follow up with urologist office, Dr. Zuleta, as directed. Return to the emergency department for fever, chills, decreased urinary output, or hematuria with clots. Referrals: GARTH BUNCH (PCP) MARTINA ZULETA MD Time of Disposition: 12:47 [employer] Jan 25, 2025 12:50
--- NOTE | 2025-01-25 13:15 | NUR ---
PT HAD 16F RAMOS INSERTED, URINE SENT FOR LAB. NOTIFIED HONG JORDAN.
--- NOTE | 2025-01-25 13:18 | NUR ---
PT HERE FOR RAMOS INSRERTION PER DR. AMADO. PT HAD LEG BAG PLACED AND EXTRA SUPPLIES GIVEN. TOTAL OUTPUT ON INSERTION 950ML.
== END 2025-01-25 13:33 | disposition home or self-care (01) ==
LOC: EDH 12:24
DX: R33.9 Retention of urine, unspecified (principal); E78.00 Pure hypercholesterolemia, unspecified; I10 Essential (primary) hypertension; Z79.02 Long term (current) use of antithrombotics/antiplatelets; Z79.82 Long term (current) use of aspirin; Z79.84 Long term (current) use of oral hypoglycemic drugs; Z79.899 Other long term (current) drug therapy
CPT/HCPCS: 51702; 99284

== ENCOUNTER 2025-02-06 19:26 | Emergency (ER) | payer MEDICARE ==
[~2025-02-06] VITALS: Ht 167.6 cm; Wt 213.2 kg
[~2025-02-06 19:26] MED LIST changes: +CIPR-278 PO
[2025-02-06 20:03] LABS: RAPID GROUP A STREP negative (NEGATIVE)
[2025-02-06 20:06] LABS: SARS-CoV-2, RNA, NAAT NEGATIVE SARS CoV-2 (NEGATIVE)
[2025-02-06 20:11] LABS: INFLUENZA TYPE A Negative For Type A (NEGATIVE); INFLUENZA TYPE B Negative For Type B (NEGATIVE)
--- NOTE | 2025-02-06 20:21 | EKG ---
[facility] Test Date: 2025-02-06 Test Time: 20:15:31 Pat Name: MO ATKINSON Department: ED Room: Gender: Hot Braider: [facility] : 1940 Requested By: BEBETO BRAGG Order Number: [id number] Reading MD: Oliver Poole Measurements Intervals [place] Rate: 84 P: 61 [place]: 205 QRS: 88 QRSD: 155 T: 20 QT: 422 QTc: 493 Interpretive Statements Sinus rhythm Multiple premature complexes, vent & supraven Right bundle branch block No previous ECG available for comparison Electronically Signed On 02-08-2025 10:10:52 BRUISE TRIMMER by Oliver Poole Please click the below link to view image of tracing.
[2025-02-06 20:23] LABS: IMMATURE GRANULOCYTE ABSOLUTE 0.08 K/uL (0-1); NUCLEATED RED BLOOD CELLS 0.0 % (0.0-0.19); PLATELET COUNT (AUTO) 243 K/uL (130-400); RED BLOOD CELL COUNT(AUTO) 4.48 MIL/uL (4.50-6.20); RED CELL DISTRIBUTION WIDTH 14.1 % (11.0-15.5); WHITE BLOOD COUNT (AUTO) 11.9 K/uL (4.8-10.8)
--- NOTE | 2025-02-06 20:31 | HMCIMG ---
EXAM: CR Chest, 1 View. CLINICAL HISTORY: Dyspnea/SOB COMPARISON: None provided. FINDINGS: LUNGS: No active infiltrate PLEURAL SPACES: No pleural effusion or pneumothorax. MEDIASTINUM: Cardiac silhouette prominent BONES: No acute osseous abnormality. IMPRESSION: 1. Cardiac silhouette prominent 2. No active infiltrate /[place]
[2025-02-06 20:33] LABS: CREATININE 1.0 mg/dL (0.5-1.3); GLOMERULAR FILTR. RATE CALC 74.0 mL/min (>90); GLUCOSE,RANDOM 149.0 mg/dL (70-105); SODIUM SERUM 133.0 mmol/L (136-145); UREA NITROGEN, BLOOD 15.0 mg/dL (7-18)
[2025-02-06] MEDS: ALBUTEROL 0.083% 2.5 MG/3 ML INH IH ONE ×2 (21:12)
--- NOTE | 2025-02-06 21:13 | ERN ---
ED Note History of Present Illness Stated Complaint: COUGH Chief Complaint: Cough Time Seen by MD: 19:31 Dictation: This is an 84-year-old male who presented to the emergency room with complaints of cough chest congestion which has been going on for months but got worse now. Stated that he also has some wheezing his coughing up mucopurulent sputum and hence he came in for evaluation. He does admit to some amount of reflux symptoms occasionally. He does use inhalers not on consistent basis. He denied fever chills and rigors however he did have a temp of a 100 here Temperature a 100 pulse 69 respirations 18 blood pressure 160/80 with a pulse oximetry of 98% on room air Hypertension diabetes mellitus, hypercholesterolemia, morbid obesity bladder surgery Allergies: Coded Allergies: No Known Drug Allergies (Verified Allergy, 12/19/12) Home Meds Active Scripts Amoxicillin/Potassium Clav (Augmentin 500-125 Tablet) 500 Mg-125 Mg Tablet, 1 TAB PO BID for 10 Days, #20 TAB 0 Refills Prov:BEBETO BRAGG MD 02/06/25 Prednisone (Prednisone) 20 Mg Tablet, 1 TAB PO AD for 6 Days, #14 TAB 0 Refills TAKE 1 TAB BY MOUTH THREE TIMES PER DAY X3 DAYS, THEN TAKE 1 TAB BY MOUTH TWICE A DAY X2 DAYS, THEN TAKE 1 TAB BY MOUTH ONCE A DAY X1 DAY. Prov:BEBETO BRAGG MD 02/06/25 Ciprofloxacin HCl (Cipro) 500 Mg Tablet, 1 TAB PO BID for 5 Days, #10 TAB 0 Refills Prov:JAMIE GREGG MD 12/26/24 Reported Medications Cefpodoxime Proxetil (Cefpodoxime Proxetil) 200 Mg Tablet, 1 TAB PO BID 11/30/24 Fluticasone Propionate (Fluticasone Propionate) 50 Mcg/Actuation [place].susp, 2 SPRAY NS BID, #16 GM 0 Refills 11/30/24 Aspirin (Ecotrin) 325 Mg Tablet.dr, 325 MG PO DAILY, TAB 11/30/24 Tamsulosin HCl (Flomax) 0.4 Mg Cap.er.24h, 1 CAP PO BID 11/30/24 Clopidogrel Bisulfate (Clopidogrel) 75 Mg Tablet, 1 TAB PO DAILY 11/30/24 [Salabutamol] No Conflict Check, 1 PUFF IH AD PRN for SHORTNESS OF BREATH/WHEEZING 10/2/25 [Tumeric Curcumin] No Conflict Check, 500 MG PO DAILY 11/16/24 [Areds-2] No Conflict Check, 1 TAB PO BID PRN for EYE VITAMIN 11/16/24 Cetirizine HCl (Cetirizine HCl) 10 Mg Tab.chew, 1 TAB PO HS for allergy symptoms for 30 Days, #30 TAB 0 Refills 11/16/24 Niacin (Niacin) 500 Mg Capsule.er, 500 MG PO AM, CAP 11/16/24 Folic Acid (Folic Acid) 0.8 Mg Capsule, 0.8 MG PO DAILY, CAP 11/16/24 Pyridoxine HCl (Vitamin B-6) 100 Mg Tablet, 100 MG PO DAILY, TAB 11/16/24 Ezetimibe (Ezetimibe) 10 Mg Tablet, 1 TAB PO DAILY for 30 Days, #30 TAB 0 Refills 11/16/24 Lisinopril (Lisinopril) 10 Mg Tablet, 1 TAB PO DAILY for 30 Days, #30 TAB 0 Refills 11/16/24 Metformin HCl (Metformin HCl) 500 Mg Tablet, 500 MG PO DAILY, TAB 11/16/24 Atenolol (Atenolol) 50 Mg Tablet, 1 TAB PO PCDINNER for 30 Days, #30 TAB 0 Refills 11/16/24 Atorvastatin Calcium (Atorvastatin Calcium) 80 Mg Tablet, 80 MG PO HS, TAB 11/16/24 Past Medical History Past Medical History: Diabetes-Type II, High Cholesterol, Hypertension Additional Past Medical Hx: HARD OF HEARING, BPH Surgical History: None Surgical History Other: BLADDER SURGERY IN THE PAST, PT NOT REALLY PARTICULAR Family History: Negative Social History: Negative, Lives with family RN Note Reviewed/Agreed w/PFSH: Yes Review of System Dictation Constitutional: Negative for fever,chills, and weight loss Eyes: Negative for injury, pain,redness, and discharge ENT: Negative for injury,pain or swelling Cardiovascular: Negative for chest pain, palpitations, and edema Respiratory: Positive for shortness of breath, cough, and wheezing, Abdomen/GI: Negative for abdominal pain, nausea, vomiting, diarrhea, and constipation Back: Negative for injury and pain : Negative for injury, bleeding and discharge MS/Extremity: Negative for injury and deformity Skin: Negative for rash, and discoloration Neuro: Negative for headache, weakness, numbness, tingling, and seizure Psych: Negative for suicide ideation, homicidal ideation, and hallucinations Initial Vital Sign VS Vital Signs Date Time Temp Pulse Resp B/P (MAP) Pulse Ox O2 Delivery O2 Flow Rate FiO2 02/06/25 19:31 100.0 69 18 160/60 98 Room Air 0 02/06/25 21:46 21 Physical Exam Dictation General: awake, alert, NAD morbidly obese elderly male Head/Face: Normocephalic, atraumatic Eyes: PERRL, EOMI, vision at baseline ENT: oral cavity clear, TMs clear, no signs of infection nasal congestion Neck: Trachea midline, supple, no nuchal rigidity Cardiovascular: RRR, normal S1/S2, No MRGs, no JVD Respiratory: Bilateral diffuse end expiratory wheezes to auscultation with prolonged expiratory phase Abdomen: Soft, non-tender, non-distended, normal bowel sounds, no guarding or rebound. Skin: Warm, dry, normal turgor, no rash MS/Extremity: Pulses equal, no cyanosis, neurovascular intact, FROM Neuro: COAx4, GCS 15, strength 5/5, CN 2-12 intact, normal cerebellar exam, n ormal gait, Psych: Normal behavior, mood, and affect normal Extremities-trace edema without any palpable cords, Homans sign is negative Results (Laboratory/Radiology) Laboratory/Radiology Laboratory Tests Test 02/06/25 19:40 02/06/25 20:15 Influenza Type A Antigen Negative For Type A Influenza Type B Antigen Negative For Type B SARS-CoV-2, RNA, NAAT NEGATIVE SARS CoV-2 Group A Streptococcus Rapid negative (NEGATIVE) White Blood Count 11.9 K/uL (4.8-10.8) H Red Blood Count 4.48 MIL/uL (4.50-6.20) L Hemoglobin 12.3 g/dL (14.0-18.0) L Hematocrit 38.0 % (42-54) L Mean Corpuscular Volume 84.8 fL (79-99) Mean Corpuscular Hemoglobin 27.5 pg (27.0-33.0) Mean Corpuscular Hemoglobin Concent 32.4 g/dL (32.0-36.0) Red Cell Distribution Width 14.1 % (11.0-15.5) Platelet Count 243 K/uL (130-400) Mean Platelet Volume 8.2 fL (7.5-10.5) Immature Granulocyte % (Auto) 0.7 % (0-1) Neutrophils (%) (Auto) 81.1 % (40.0-77.0) H Lymphocytes (%) (Auto) 7.5 % (21.0-51.0) L Monocytes (%) (Auto) 8.8 % (3.0-13.0) Eosinophils (%) (Auto) 1.6 % (0.0-8.0) Basophils (%) (Auto) 0.3 % (0.0-5.0) Neutrophils # (Auto) 9.7 K/uL (1.8-7.7) H Lymphocytes # (Auto) 0.9 K/uL (1.0-4.8) L Monocytes # (Auto) 1.1 K/uL (0.1-1.0) H Eosinophils # (Auto) 0.19 K/uL (0.00-0.70) Basophils # (Auto) 0.04 K/uL (0.00-0.20) Absolute Immature Granulocyte (auto 0.08 K/uL (0-1) Nucleated Red Blood Cells 0.0 % (0.0-0.19) White Cell Morphology Comment See comments Sodium Level 133 mmol/L (136-145) L Potassium Level 4.2 mmol/L (3.5-5.1) Chloride Level 98 mmol/L (101-111) L Carbon Dioxide Level 27 mmol/L (21-32) Blood Urea Nitrogen 15 mg/dL (7-18) Creatinine 1.0 mg/dL (0.5-1.3) Glomerular Filtration Rate Calc 74 mL/min (>90) Random Glucose 149 mg/dL (70-105) H Total Calcium 8.5 mg/dL (8.5-10.1) Labs Reviewed?: Yes X-RAY Comment: REASON: Dyspnea/SOB ORDERING PHYSICIAN: BEBETO BRAGG MD PROCEDURE: CXR1VW - CHEST 1VW EXAM: CR Chest, 1 View. CLINICAL HISTORY: Dyspnea/SOB COMPARISON: None provided. FINDINGS: LUNGS: No active infiltrate PLEURAL SPACES: No pleural effusion or pneumothorax. MEDIASTINUM: Cardiac silhouette prominent BONES: No acute osseous abnormality. IMPRESSION: 1. Cardiac silhouette prominent 2. No active infiltrate /[place] DICTATED BY: SONIA SUH MD DATE: 02/06/252129 ELECTRONICALLY SIGNED BY: SONIA SUH MD DATE: 02/06/252129 ED Course ED Course Orders Procedure Category Date Status Time O2 Nc Keep Sats CPOE 02/06/25 Transmitted Greater 92% 19:37 Cbc With Differential LAB 02/06/25 Complete 19:37 Chest 1vw RAD 02/06/25 Resulted 19:37 12 Lead Ekg Tracing- EKG 02/06/25 Complete Technical 19:37 Albuterol 0.083% PHA 02/06/25 Complete 2.5mg/3ml (Proventil 20:00 Basic Metabolic Panel LAB 02/06/25 Complete 19:37 Influenza Type A & B, LAB 02/06/25 Complete Rapid 19:43 Rapid (Group A Strep) LAB 02/06/25 Complete 19:43 Covid Rna Naat LAB 02/06/25 Complete 19:43 Albuterol 0.083% PHA 02/06/25 Complete 2.5mg/3ml (Proventil 19:44 Methylprednisolone PHA 02/06/25 Complete Succ 125mg (Solu-Medr 21:30 Ceftriaxone 1g Vial PHA 02/06/25 Complete (Rocephine 1g Inj) 21:30 Orphenadrine Citrate PHA 02/06/25 Complete (Norflex) 21:30 Current Medications Medications (Trade) Dose Ordered Sig/Melissa Route PRN Reason Start Time Stop Time Status Last Admin Dose Admin Albuterol Sulfate (Proventil 0.083% 2.5mg/3ml) 2.5 mg ONCE ONCE IH 02/06/25 20:00 02/06/25 20:01 DC 02/06/25 21:12 Albuterol Sulfate (Proventil 0.083% 2.5mg/3ml) 2.5 mg STK-MED ONCE IH 02/06/25 19:44 02/06/25 19:44 DC Ceftriaxone Sodium (ROCEphine 1G INJ) 1 gm ONCE ONCE IM 02/06/25 21:30 02/06/25 21:31 DC 02/06/25 21:41 Methylprednisolone Sodium Succinate (Solu-medROL 125MG) 60 mg ONCE ONCE IM 02/06/25 21:30 02/06/25 21:31 DC 02/06/25 21:41 Orphenadrine Citrate (Norflex) 60 mg ONCE ONCE IM 02/06/25 21:30 02/06/25 21:31 DC 02/06/25 21:41 Vital Signs Date Time Temp Pulse Resp B/P (MAP) Pulse Ox O2 Delivery O2 Flow Rate FiO2 02/06/25 21:46 99.0 69 18 152/74 98 Room Air* 0 21 02/06/25 21:14 82 18 02/06/25 19:31 100.0 69 18 160/60 98 Room Air 0 Medical Decision Making MDM Differential diagnosis: Acute bronchitis, asthma variant, reactive airway disease COPD exacerbation, congestive heart failure, restrictive ventilatory impairment due to obesity and poor endurance, pulmonary embolus, bilateral pneumonia This is an 84-year-old male who presented to the emergency room with complaints of cough chest congestion which has been going on for months but got worse now. Stated that he also has some wheezing his coughing up mucopurulent sputum and hence he came in for evaluation. He does admit to some amount of reflux symptoms occasionally. He does use inhalers not on consistent basis. He denied fever chills and rigors however he did have a temp of a 100 here Temperature a 100 pulse 69 respirations 18 blood pressure 160/80 with a pulse oximetry of 98% on room air Hypertension diabetes mellitus, hypercholesterolemia, morbid obesity bladder surgery 8:32 p.m. labs reviewed chest x-ray shows no acute focal consolidation. CBC showed a white count of 11.9 hemoglobin 12.3 platelets 243 BNP 7 shows a sodium of 133 chloride 98 BUN and creatinine of 15 and 1.0. Nasopharyngeal swabs for influenza COVID and streptococcal infections were negative. With a an impression of probably acute exacerbation of COPD versus acute bronchitis and clinical pneumonitis patient was treated with antibiotic, steroid bronchodilator therapy I explained and updated the patient and family member on available labs and plan of care. He indicated that he has bronchodilators at home and I instructed him to use them every 4 hours at least for the next 1 week to 2 weeks. Has the chronic cough could be from postnasal drip although silent microaspiration from GERD could also be causing his chronic cough. Rationale: Tests considered and ordered secondary to shared decision making include: Labs and chest x-ray Previous outside records reviewed: Old ER visits. Risk of complication and/or morbidity or mortality of patient management: None Medications-Per medication reconciliation Need for hospitalization: Patient does not meet criteria for hospitalization. Need for emergency major/minor surgery: No There are no social concerns with this patient. Prescription drug management Prescriptions will include symptomatic care Patient's prior external medical records from other ER visits were reviewed by me as indicated. Prior testing and results from previous visits were reviewed. Prior tests were taken into account with medical decision making and resource utilization, independent historian/historians were used to obtain complete medical history. I independently interpreted the test that were performed, results were reviewed by me and considered findings on radiology if ordered. Medical management and examination interpretation discussions were had by me with other qualified healthcare professionals as indicated for the patient's care. Problem List Problem List: (1) Acute bronchitis (2) Sinusitis (3) Chronic cough (4) Bronchospasm (5) Diabetes mellitus with hyperglycemia (6) Anemia of chronic renal failure, stage 2 (mild) DX & DISP Disposition: Discharge Departure Impression: Primary Impression: Acute bronchitis Additional Impressions: Chronic cough, Sinusitis, Bronchospasm, Anemia of chronic renal failure, stage 2 (mild), Diabetes mellitus with hyperglycemia Condition: Stable Scripts Amoxicillin/Potassium Clav (Augmentin 500-125 Tablet) 500 Mg-125 Mg Tablet 1 TAB PO BID for 10 Days, #20 TAB 0 Refills Prov: BEBETO BRAGG MD 02/06/25 Prednisone (Prednisone) 20 Mg Tablet 1 TAB PO AD for 6 Days, #14 TAB 0 Refills TAKE 1 TAB BY MOUTH THREE TIMES PER DAY X3 DAYS, THEN TAKE 1 TAB BY MOUTH TWICE A DAY X2 DAYS, THEN TAKE 1 TAB BY MOUTH ONCE A DAY X1 DAY. Prov: BEBETO BRAGG MD 02/06/25 Additional Instructions: Patient and the caregiver have been informed of all the diagnostic tests and the imaging conducted during the today's visit to the emergency room and has verbalized understanding of the results I have personally reviewed and interpreted all diagnostic exams performed here in the ER today as well as the vital signs documented by the nursing staff. The patient is now being discharged to home and should follow up with the primary care physician or the specialist as directed by the ER staff. 1 schedule a follow-up appointment; call your primary care physician's office on the next business day to set up a follow-up appointment. 2. Monitor symptoms; if your symptoms worsen return to the emergency room immediately. 3. Return to school/work; you may return to work or school in 2 days or as directed by your primary care physician. 4. Manage pain and fever; take [id number] Tylenol or Advil for pain or f ever if there are no contraindications follow the recommended dosage instructions. 5. Stay well hydrated; drink plenty of oral fluids to stay hydrated. 6. Take prescribed medications; take any medications prescribed in the emergency room as directed bring them with you to your primary care physician visit for possible adjustments. 7. Complete medication course; finish the entire course of medication as prescribed even if you start feeling better. Do not have any leftover medication unless instructed otherwise. 8. Follow up on culture results; if a urine culture and wound culture was ordered in the emergency room please follow-up with your primary care physician within 2-3 days to review the culture and sensitivity report for appropriate antibiotic therapy adjustments. 9. Resume home medications; you may resume taking your home medications unless instructed otherwise. Please use your inhalers that you have at home every 4 hours for the next few days to reduce the chest congestion. Complete the full course of the antibiotics Prednisolone can milk your sugars go high transiently. Monitor your sugars closely Referrals: GARTH BUNCH (PCP) BEBETO BRAGG MD Feb 06, 2025 21:13
[2025-02-06 21:14] VITALS: PULSE 82; RESP 18
[2025-02-06] MEDS ORDERED: AMOX-426 PO (21:20)
[2025-02-06] MEDS ORDERED: PRED20TA3 PO (21:20)
[2025-02-06] MEDS: ORPHENADRINE 60MG/2ML IM ONE (21:41)
[2025-02-06 21:46] VITALS: BP 152/74; PULSE 69; RESP 18; TEMP 98.9; O2SAT 98
== END 2025-02-06 21:49 | disposition home or self-care (01) ==
LOC: EDH 19:26
DX: J20.9 Acute bronchitis, unspecified (principal); J32.9 Chronic sinusitis, unspecified; I12.9 Hypertensive chronic kidney disease with stage 1 through stage 4 chronic kidney disease, or unspecified chronic kidney disease; E11.22 Type 2 diabetes mellitus with diabetic chronic kidney disease; N18.2 Chronic kidney disease, stage 2 (mild); E11.65 Type 2 diabetes mellitus with hyperglycemia; D63.1 Anemia in chronic kidney disease; E78.00 Pure hypercholesterolemia, unspecified; E66.01 Morbid (severe) obesity due to excess calories; Z79.82 Long term (current) use of aspirin; Z79.84 Long term (current) use of oral hypoglycemic drugs; Z79.899 Other long term (current) drug therapy; Z79.02 Long term (current) use of antithrombotics/antiplatelets; Z98.890 Other specified postprocedural states; Z68.45 Body mass index [BMI] 70 or greater, adult; Z20.822 Contact with and (suspected) exposure to COVID-19
CPT/HCPCS: 99285; 71045; 87635; 80048; 85025; 87880; 87804 ×2; 36415; 96372 ×3; 93005; 94640; J2919; J0696; J2360

== ENCOUNTER 2025-02-08 13:15 | Emergency (ER) | payer MEDICARE ==
[~2025-02-08] VITALS: Ht 172.7 cm; Wt 86.2 kg
[~2025-02-08 13:15] MED LIST changes: +AMOX-426 PO; +PRED20TA3 PO
[2025-02-08 13:20] VITALS: BP 147/73; PULSE 78; RESP 19; TEMP 97.5
--- NOTE | 2025-02-08 13:28 | ERN ---
ED Note History of Present Illness Stated Complaint: CATHER PROBLEM Chief Complaint: Urinary Catheter Problems Time Seen by MD: 13:18 Time Seen by Midlevel: 13:18 Dictation: The patient is an 84-year-old male with a history of hypertension, diabetes, h yperlipidemia who presents to the emergency department with leaking Ramos onset today. Patient reports he had a catheter placed a week ago for urinary retention due to enlarged prostate. Patient otherwise denies any fevers or any other complaints. Allergies: Coded Allergies: No Known Drug Allergies (Verified Allergy, 12/19/12) Home Meds Active Scripts Amoxicillin/Potassium Clav (Augmentin 500-125 Tablet) 500 Mg-125 Mg Tablet, 1 TAB PO BID for 10 Days, #20 TAB 0 Refills Prov:BEBETO BRAGG MD 02/06/25 Prednisone (Prednisone) 20 Mg Tablet, 1 TAB PO AD for 6 Days, #14 TAB 0 Refills TAKE 1 TAB BY MOUTH THREE TIMES PER DAY X3 DAYS, THEN TAKE 1 TAB BY MOUTH TWICE A DAY X2 DAYS, THEN TAKE 1 TAB BY MOUTH ONCE A DAY X1 DAY. Prov:BEBETO BRAGG MD 02/06/25 Ciprofloxacin HCl (Cipro) 500 Mg Tablet, 1 TAB PO BID for 5 Days, #10 TAB 0 Refills Prov:JAMIE GREGG MD 12/26/24 Reported Medications Cefpodoxime Proxetil (Cefpodoxime Proxetil) 200 Mg Tablet, 1 TAB PO BID 11/30/24 Fluticasone Propionate (Fluticasone Propionate) 50 Mcg/Actuation [place].susp, 2 SPRAY NS BID, #16 GM 0 Refills 11/30/24 Aspirin (Ecotrin) 325 Mg Tablet.dr, 325 MG PO DAILY, TAB 11/30/24 Tamsulosin HCl (Flomax) 0.4 Mg Cap.er.24h, 1 CAP PO BID 11/30/24 Clopidogrel Bisulfate (Clopidogrel) 75 Mg Tablet, 1 TAB PO DAILY 11/30/24 [Salabutamol] No Conflict Check, 1 PUFF IH AD PRN for SHORTNESS OF BREATH/WHEEZING 11/16/24 [Tumeric Curcumin] No Conflict Check, 500 MG PO DAILY 11/16/24 [Areds-2] No Conflict Check, 1 TAB PO BID PRN for EYE VITAMIN 11/16/24 Cetirizine HCl (Cetirizine HCl) 10 Mg Tab.chew, 1 TAB PO HS for allergy symptoms for 30 Days, #30 TAB 0 Refills 11/16/24 Niacin (Niacin) 500 Mg Capsule.er, 500 MG PO AM, CAP 11/16/24 Folic Acid (Folic Acid) 0.8 Mg Capsule, 0.8 MG PO DAILY, CAP 11/16/24 Pyridoxine HCl (Vitamin B-6) 100 Mg Tablet, 100 MG PO DAILY, TAB 11/16/24 Ezetimibe (Ezetimibe) 10 Mg Tablet, 1 TAB PO DAILY for 30 Days, #30 TAB 0 Refills 11/16/24 Lisinopril (Lisinopril) 10 Mg Tablet, 1 TAB PO DAILY for 30 Days, #30 TAB 0 Refills 11/16/24 Metformin HCl (Metformin HCl) 500 Mg Tablet, 500 MG PO DAILY, TAB 11/16/24 Atenolol (Atenolol) 50 Mg Tablet, 1 TAB PO PCDINNER for 30 Days, #30 TAB 0 Refills 11/16/24 Atorvastatin Calcium (Atorvastatin Calcium) 80 Mg Tablet, 80 MG PO HS, TAB 11/16/24 Past Medical History Past Medical History: Diabetes-Type II, High Cholesterol, Hypertension Additional Past Medical Hx: HARD OF HEARING, BPH, INDWELLING ARMOS CATH Surgical History: None Surgical History Other: BLADDER SURGERY IN THE PAST, PT NOT REALLY PARTICULAR Family History: Negative Social History: Negative, Lives with family RN Note Reviewed/Agreed w/PFSH: Yes Review of System Dictation Constitutional: Negative for fever,chills, and weight loss Eyes: Negative for injury, pain,redness, and discharge ENT: Negative for injury,pain or swelling Cardiovascular: Negative for chest pain, palpitations, and edema Respiratory: Negative for shortness of breath, cough, and wheezing, Abdomen/GI: Negative for abdominal pain, nausea, vomiting, diarrhea, and constipation Back: Negative for injury and pain : Negative for injury, bleeding and discharge MS/Extremity: Negative for injury and deformity Skin: Negative for rash, and discoloration Neuro: Negative for headache, weakness, numbness, tingling, and seizure Psych: Negative for suicide ideation, homicidal ideation, and hallucinations Initial Vital Sign VS Vital Signs Date Time Temp Pulse Resp B/P (MAP) Pulse Ox O2 Delivery O2 Flow Rate FiO2 02/08/25 13:20 97.5 78 19 147/73 94 Room Air 0 Physical Exam Dictation Vital Signs reviewed General Appearance: Alert, oriented x 3, no acute distress, well developed, nourished. Head and Face: non-traumatic. Eyes: PERRL, pink conjunctivas, eyelid no trauma, anterior chamber with arcus senilis. Ears: Pinnas intact and no signs of trauma or erythema ear canals clear and no discharge TM no erythema Nose: No discharge, no bleeding. Oropharynx: Mouth normal, tongue pink. pharynx clear,no erythema, tonsils no exudates, no abscesses noted, mucous membrane moist Neck: Supple, non-tender, no thyromegaly, no masses, no JVD, no bruits Breast:Deferred Chest:No tenderness, no crepitus, no paradoxical movement, no retractions Lungs:Clear, well-ventilated, symmetric, no rales, no wheezing, no rhonchi, no stridor, good breath sounds bilaterally Heart: Regular rate, regular rhythm, no murmur, no gallops Vascular: no peripheral edema, Abdomen: Soft, positive bowel sounds, nondistended, no guarding, nontender, no rebound, no masses no hepatomegaly, no splenomegaly, no Natarajan's sign, no hernias. Rectal: Deferred Genital: Deferred Neurological: Normal speech, motor function intact, sensory function intact Musculoskeletal: Neck nontender, full range of motion, back nontender, full range of motion, Extremities: nontender, full range of motion Skin: Color pink, dry, no turgor, no rash, no lacerations, no abrasions, no contusions. Lymphatic: Deferred Results (Laboratory/Radiology) Labs Reviewed?: Yes ED Course ED Course Vital Signs Date Time Temp Pulse Resp B/P (MAP) Pulse Ox O2 Delivery O2 Flow Rate FiO2 02/08/25 13:20 97.5 78 19 147/73 94 Room Air 0 Medical Decision Making MDM The patient is an 84-year-old male with a history of hypertension, diabetes, hyperlipidemia who presents to the emergency department with leaking Ramos onset today. Patient reports he had a catheter placed a week ago for urinary retention due to enlarged prostate. Patient otherwise denies any fevers or any other complaints. Catheter was exchanged. Patient tolerated procedure well. Had about 300 cc of urine output. Patient otherwise in no acute distress, nontoxic appearance. Patient was seen here two days ago for an respiratory infection and was given Augmentin. Patient reports he is planning to pick them up from the pharmacy. Patient otherwise instructed to follow up with the or urologist. Differential diagnosis: Ramos catheter problem, urinary retention, dysuria Need for hospitalization: Patient does not meet criteria for hospitalization. There are no social concerns with this patient. DX & DISP Disposition: Discharge Departure Impression: Primary Impression: Malfunction of Ramos catheter Condition: Stable Additional Instructions: Follow up with your PCP in 1-2 days. Follow up with the your urologist. If you develop fevers, flank pain or symptoms worsen please return to ER. FOLLOW-UP WITH PRIMARY CARE PROVIDER IN 1 TO 2 DAYS. TAKE MEDICATIONS DIRECTED HERE IN THE EMERGENCY ROOM. OKAY TO CONTINUE HOME MEDICATIONS UNLESS OTHERWISE DISCUSSED DURING YOUR VISIT IN THE EMERGENCY ROOM TODAY. RETURN TO YOUR NEAREST EMERGENCY ROOM IF SYMPTOMS WORSEN OR IF THERE IS NO IMPROVEMENT. CALL 911 IF YOU NEED IMMEDIATE ASSISTANCE. TAKE TYLENOL [id number] NEEDED AND IF NO CONTRAINDICATIONS ARE PRESENT. INCREASE ORAL HYDRATION. A WOUND CULTURE OR URINE CULTURE WAS ORDERED HERE IN THE EMERGENCY ROOM DEPARTMENT PLEASE FOLLOW-UP WITH PRIMARY CARE PROVIDER AND ADVISE THEM TO GET REPEAT PORTS FROM OUR FACILITY. IF YOU HAD ANY CANDIS WRAP/SPLINTS THAT WERE APPLIED HERE, PLEASE DO NOT REMOVE THEM UNTIL YOU SEE YOUR PRIMARY CARE OR SPECIALTY. Referrals: GARTH BUNCH (PCP) Time of Disposition: 14:45 I have reviewed the case, and I agree with, Diagnosis and Plan [facility] Feb 08, 2025 13:27
== END 2025-02-08 15:16 | disposition home or self-care (01) ==
LOC: EDH 13:15
DX: T83.038A Leakage of other urinary catheter, initial encounter (principal); I10 Essential (primary) hypertension; E11.9 Type 2 diabetes mellitus without complications; E78.00 Pure hypercholesterolemia, unspecified; Z79.82 Long term (current) use of aspirin; Y84.6 Urinary catheterization as the cause of abnormal reaction of the patient, or of later complication, without mention of misadventure at the time of the procedure; Y92.89 Other specified places as the place of occurrence of the external cause
CPT/HCPCS: 51702; 99284